=== PATIENT | female | born 1960 | race Caucasian/White ===

== ENCOUNTER 2017-11-05 19:31 | Emergency (ER) | payer OTHER ==
[~2017-11-05 19:31] MED LIST: ANTIVERT12.5 MG PO; GOOD SENSE ASPI81 M3 PO; HYD25 PO; HYDROCHLOROTHIAZIDE; LAC PO; LISINOPRIL; MAC100 PO; METFORMIN500 M1 PO; RANITIDINE; RANITIDINE HCL150 M1 PO; SIMVASTATIN; TRAMADOL; TRE400 PO; ULT50 PO; ZES20 PO; ZOC20 PO
[2017-11-06 00:17] VITALS: BP 140/81
== END 2017-11-06 00:17 | disposition home or self-care (01) ==
LOC: ED 19:31
DX: S43.005A Unspecified dislocation of left shoulder joint, initial encounter (principal); I10 Essential (primary) hypertension; E11.9 Type 2 diabetes mellitus without complications; E78.00 Pure hypercholesterolemia, unspecified; W01.0XXA Fall on same level from slipping, tripping and stumbling without subsequent striking against object, initial encounter; Y93.89 Activity, other specified; Y92.89 Other specified places as the place of occurrence of the external cause; Y99.8 Other external cause status
CPT/HCPCS: J2270; J2405; J2550; J3490; J7050; Q0092; Q0162